=== PATIENT | male | born 1980 | race Caucasian/White ===

== ENCOUNTER 2017-03-08 17:09 | Emergency (ER) | payer SELFPAY ==
[~2017-03-08] VITALS: Ht 175.3 cm; Wt 74.8 kg
[~2017-03-08 17:09] MED LIST: CIPRO PO; FLEXERIL PO; FLEXERIL10 M1 PO; FLOMAX0.4 M1 DOB; FLOMAX0.4 M1 PO; MEDROL DOSE PAK; MOBIC PO; NAPROSYN500 MG PO; NAPROXEN PO; NO MEDICATIONS; NORCO 10/3251 TAB PO; ONDANSETRON ODT4 MG DOB; PERCOCET 5-3251 TAB PO; PHENERGAN25 MG PO; TESSALON200 MG PO; VOLTAREN75 MG PO; ZANTAC PO; ZYRTEC PO
== END 2017-03-08 19:28 | disposition home or self-care (01) ==
LOC: CFTX 17:09 → CED 17:09 → CFTX 18:35
DX: S43.52XA Sprain of left acromioclavicular joint, initial encounter (principal); S46.012A Strain of muscle(s) and tendon(s) of the rotator cuff of left shoulder, initial encounter; F17.210 Nicotine dependence, cigarettes, uncomplicated; Z87.442 Personal history of urinary calculi; X50.0XXA Overexertion from strenuous movement or load, initial encounter; Y92.69 Other specified industrial and construction area as the place of occurrence of the external cause
CPT/HCPCS: 96372; 99283; J1885